=== PATIENT | female | born 1990 | race Caucasian/White ===

== ENCOUNTER 2018-06-25 12:22 | Emergency (ER) | payer OTHER ==
[2018-06-25 12:42] VITALS: BP 153/78; PULSE 66; RESP 18; TEMP 98.8
[2018-06-25] MEDS ORDERED: cefTRIAXone 250 MG VIAL IM STA (13:03)
[2018-06-25] MEDS ORDERED: AZITHROMYCIN 250 MG TAB PO STA (13:03)
--- NOTE | 2018-06-25 13:03 | ED ---
Recheck HPI - General Chief Complaint: Recheck/Abnormal Lab/Rx Stated Complaint: Female Time Seen by Provider: 06/25/18 12:45 Source: patient, RN notes reviewed Mode of arrival: ambulatory Limitations: no limitations - History of Present Illness Initial Comments: 28-year-old female presented emergency department with chief complaint of possible STD exposure. Patient states her tested positive for chlamydia. Patient states that she has no symptoms at this time. She denies any vaginal bleeding vaginal discharge, dysuria or hematuria. She has no fever no chills no back pain no abdominal pain. She states that she wants to be checked and given treatment for. - Related Data Allergies Allergy/AdvReac Type Severity Reaction Status Date / Time No Known Allergies Allergy Verified 06/25/18 12:38 Review of Systems ROS Statement: Those systems with pertinent positive or pertinent negative responses have been documented in the HPI. ROS Other: All systems not noted in ROS Statement are negative. Past Medical History Additional Past Medical History / Comment(s): migraines, chlamydia History of Any Multi-Drug Resistant Organisms: None Reported Past Surgical History: Tonsillectomy Past Psychological History: Anxiety Smoking Status: Never smoker Past Alcohol Use History: None Reported Past Drug Use History: None Reported General Exam Limitations: no limitations General appearance: alert, in no apparent distress Head exam: Present: atraumatic, normocephalic, normal inspection Respiratory exam: Present: normal lung sounds bilaterally. Absent: respiratory distress, wheezes, rales, rhonchi, stridor Cardiovascular Exam: Present: regular rate, normal rhythm, normal heart sounds. Absent: systolic murmur, diastolic murmur, rubs, gallop, clicks GI/Abdominal exam: Present: soft, normal bowel sounds. Absent: distended, tenderness, guarding, rebound, rigid Course Vital Signs 06/25/18 12:38 Temperature 98.8 F Pulse Rate 66 Respiratory 18 Rate Blood Pressure 153/78 O2 Sat by Pulse 100 Oximetry Medical Decision Making - Medical Decision Making 28-year-old female presented for STD exposure. She'll be given treatment for gonorrhea and chlamydia STD testing was performed and results are pending. Disposition Clinical Impression: Possible exposure to STD Disposition: HOME SELF-CARE Condition: Stable Instructions: Sexually Transmitted Diseases (ED) Additional Instructions: Please return to the Emergency Department if symptoms worsen or any other concerns. Is patient prescribed a controlled substance at d/c from ED?: No Referrals: None,Stated [Primary Care Provider] - 1-2 days Time of Disposition: 13:02
[2018-06-26 14:31] LABS: C. trachomatis,PCR Positive (Neg,Equiv); Chlamydia trachomatis Source Urine; N. gonorrhoeae,PCR Negative (Neg,Equiv); Neisseria Source Urine
== END 2018-06-25 13:40 | disposition home or self-care (01) ==
LOC: EC 12:22
DX: Z20.2 Contact with and (suspected) exposure to infections with a predominantly sexual mode of transmission (principal)
CPT/HCPCS: 87491; 87591; 87086; 99283; 96372; J0696